=== PATIENT | female | born 1965 | race Caucasian/White ===

== ENCOUNTER 2016-04-07 17:38 | Emergency (ER) | payer OTHER ==
[~2016-04-07] VITALS: Ht 157.5 cm; Wt 102.1 kg
[~2016-04-07 17:38] MED LIST: ALBUTEROL0.09 MG/A3 IH; ATIVAN1 MG PO; AUGMENTIN 875 M1 TAB PO; CLINDAMYCIN150 M1 PO; EXCEDRIN 250 MG1 TAB PO; EXCEDRIN EXTRA1 TAB PO; HYDROCOD BIT &1 TAB PO; IMITREX25 MG PO; LISINOPRIL HCTZ1 TA1 PO; MOTRIN200 MG PO; NAPROSYN PO; NORVASC10 MG PO; PERCOCET 5/3251 TAB PO; ROXICODONE5 M1 PO; SOMA350 M1 PO; SOMA350 MG PO; VASOTEC10 MG PO; ZANAFLEX CAPSULE4 MG PO; ZOCOR20 MG PO; ZYRTEC10 MG PO; [UNRECOGNIZED DRUG - REMARK]; [UNRECOGNIZED DRUG - REMARK]
[2016-04-07 17:46] VITALS: BP 153/97
--- NOTE | 2016-04-07 17:51 | NUR ---
PATIENT TO BED 4.
--- NOTE | 2016-04-07 18:00 | NUR ---
Patient being evaluated by physician at bedside.
--- NOTE | 2016-04-07 18:04 | NUR ---
51/F presents to ED for evaluation of left arm pain. Denies trauma or injury. Patient is AOX4, ambulates with steady gait. VSS.
[2016-04-07] MEDS ORDERED: LIDOCAINE 1% 500 MG/50 ML VIAL INJ ONE (18:10)
--- NOTE | 2016-04-07 18:39 | NUR ---
LIDOCAINE GIVEN BY MD DURING PROCEDURE.
--- NOTE | 2016-04-07 19:11 | NUR ---
Chart checked and completed. The patient's care was reviewed and supervised by Ameya Arzate RN.
--- NOTE | 2016-04-07 19:11 | NUR ---
Patient discharged with v/s stable. Written and verbal after care instructions given and explained. Patient verbalized understanding. Ambulatory with steady gait. All questions addressed prior to discharge. Advised to follow up with PMD.
[2016-04-07 19:14] VITALS: BP 153/97
== END 2016-04-07 19:15 | disposition home or self-care (01) ==
LOC: MED 17:38
DX: M25.512 Pain in left shoulder (principal); M62.830 Muscle spasm of back; J44.9 Chronic obstructive pulmonary disease, unspecified; I10 Essential (primary) hypertension
CPT/HCPCS: 20552; 99284; J2001

== ENCOUNTER 2016-06-15 10:46 | Emergency (ER) | payer OTHER ==
[~2016-06-15] VITALS: Ht 158.8 cm; Wt 102.5 kg
[2016-06-15 11:16] VITALS: BP 136/91
--- NOTE | 2016-06-15 17:30 | NUR ---
PATIENT LEFT WITHOUT BEING SEEN BY DR. JOHNSTON. NO FURTHER CARE PROVIDED FOR PATIENT.
== END 2016-06-15 17:30 | disposition left against medical advice (07) ==
LOC: MED 10:46
DX: M54.2 Cervicalgia (principal); Z53.21 Procedure and treatment not carried out due to patient leaving prior to being seen by health care provider

== ENCOUNTER 2016-12-09 14:23 | Inpatient (IN) | payer OTHER ==
[~2016-12-09] VITALS: Ht 160 cm; Wt 101.6 kg
[~2016-12-09 14:23] MED LIST changes: -ALBUTEROL0.09 MG/A3 IH; -ATIVAN1 MG PO; -AUGMENTIN 875 M1 TAB PO; +CARI350T PO; -CLINDAMYCIN150 M1 PO; -EXCEDRIN 250 MG1 TAB PO; -EXCEDRIN EXTRA1 TAB PO; -HYDROCOD BIT &1 TAB PO; -IMITREX25 MG PO; -LISINOPRIL HCTZ1 TA1 PO; -MOTRIN200 MG PO; -NAPROSYN PO; -NORVASC10 MG PO; -PERCOCET 5/3251 TAB PO; -ROXICODONE5 M1 PO; -SOMA350 M1 PO; -SOMA350 MG PO; -VASOTEC10 MG PO; -ZANAFLEX CAPSULE4 MG PO; -ZOCOR20 MG PO; -ZYRTEC10 MG PO; -[UNRECOGNIZED DRUG - REMARK]; -[UNRECOGNIZED DRUG - REMARK]
[2016-12-09 14:32] VITALS: BP 157/106
[2016-12-09] MEDS ORDERED: HYDR12.51 PO (14:36)
--- NOTE | 2016-12-09 14:37 | NUR ---
Patient ambulated to bed 06.
--- NOTE | 2016-12-09 14:39 | NUR ---
Dr. Sheets evaluating patient at bedside.
--- NOTE | 2016-12-09 14:40 | NUR ---
PT C/O LEFT CHEST PAIN RADIATING DOWN LEFT ARM AND LEFT SIDED FACIAL PAIN 7/10.DENIES N/V/D; SKIN IS PINK/WARM/DRY; AAOX4 WITH EVEN AND STEADY GAIT; LUNGS CLEAR BL; HR EVEN AND REGULAR; PT DENIES ANY FEVER, SOB, OR COUGH AT THIS TIME; PATIENT STATES PAIN OF 7/10 AT THIS TIME; VSS; PATIENT POSITIONED FOR COMFORT; HOB ELEVATED; BEDRAILS UP X2; BED DOWN. ER MD MADE AWARE OF PT STATUS.
--- NOTE | 2016-12-09 14:49 | NUR ---
XRAY at bedside.
[2016-12-09] MEDS ORDERED: ASPIRIN 325 MG TAB ONE (14:50)
[2016-12-09 14:52] LABS: BASOPHILS # (AUTO) 0.3 K/uL (0.00-0.22); EOSINOPHILS # (AUTO) 0.3 K/uL (0-0.4); HEMATOCRIT 42.4 % (36-48); HEMOGLOBIN 13.8 g/dL (12.0-16.0); LYMPHOCYTES # (AUTO) 2.4 K/uL (2.5-16.5); MEAN CORPUSCULAR HEMOGLOBIN 29 pg (27-31); MEAN CORPUSCULAR HGB CONC 33 g/dL (33-37); MEAN CORPUSCULAR VOLUME 88 fL (80-94); MONOCYTES # (AUTO) 0.5 K/uL (0.8-1.0); NEUTROPHILS # (AUTO) 5.1 K/uL (1.8-7.7); PLATELET COUNT (AUTO) 336 K/uL (140-450); RED BLOOD CELL COUNT(AUTO) 4.84 MIL/uL (4.20-5.40); RED CELL DISTRIBUTION WIDTH 13.3 % (11.6-13.7); WHITE BLOOD COUNT (AUTO) 8.6 K/uL (4.8-10.8)
[2016-12-09 15:05] LABS: ANION GAP 10.8 (8-16); CARBON DIOXIDE 28.6 mmol/L (21-32); POTASSIUM 4.4 mmol/L (3.5-5.1)
[2016-12-09] MEDS ORDERED: METOPROLOL 5 MG/5 ML VIAL IVP ONE (15:05)
[2016-12-09 15:11] LABS: PROTHROMBIN TIME 9.9 secs (10.8-13.4)
[2016-12-09] MEDS: NACL 0.9% 1,000 ML IV SCH (15:11)
[2016-12-09 15:12] LABS: ALBUMIN 3.5 g/dL (3.4-5.0); TOTAL BILIRUBIN 0.3 mg/dL (0.0-1.0)
[2016-12-09] MEDS ORDERED: ONDANSETRON 4 MG/2 ML VIAL IVP PRN ×2 (15:15→15:25)
[2016-12-09] MEDS ORDERED: ACETAMINOPHEN 325 MG TAB PO PRN (15:15)
[2016-12-09] MEDS ORDERED: HYDROcodone/APAP 7.5/325 MG 1 TAB PO PRN (15:15)
[2016-12-09] MEDS ORDERED: NITROGLYCERIN 0.4 MG TAB SL PRN (15:20)
[2016-12-09] MEDS: MORPHINE SULFATE 4 MG/ML SYR IVP PRN ×2 (15:42→22:59)
--- NOTE | 2016-12-09 15:46 | NUR ---
Patient will be admitted to care of DR ZAZUETA. Admited to TELE. Will go to room 105B. Belongings list completed. Report to TWYLA YOUSIF.
[2016-12-09 15:55] VITALS: BP 143/80
[2016-12-09 15:55] LABS: APPEARANCE,URINE CLEAR (CLEAR); BILIRUBIN,URINE NEGATIVE (NEGATIVE); BLOOD, URINE NEGATIVE (NEGATIVE); COLOR,URINE YELLOW (YELLOW); LEUKOCYTE ESTERASE ,URINE NEGATIVE (NEGATIVE); NITRITE, URINE NEGATIVE (NEGATIVE); PH,URINE 5.5 (5.0-9.0); UGLUCOSE NEGATIVE (NEGATIVE)
--- NOTE | 2016-12-09 15:55 | NUR ---
RECEIVED PT REPORT AT BEDSIDE FROM ER NURSE. PT IS AAOX4 AND STATES SHE HAS A HEADACHE OF 7/10. PT STATED ONLY MORPHINE HELPS AND REFUSED NORCO AND TYLENOL. PT STATED "I'LL WAIT FOR THE MORPHINE." PT IV NOTED ON THE R AC WITH IVF'S INFUSING WELL. SKIN INTACT. ON TELE MONITOR. PT WAS EXPLAINED POC FOR TODAY AND SHE VERBALIZED UNDERSTANDING. THE BED IS IN LOW POSITION WITH CALL LIGHT WITHIN REACH. FALL RISK PROTOCOL SET IN PLACE BY WILL CONTINUE TO MONITOR.
[2016-12-09] MEDS ORDERED: MECLIZINE 25 MG TAB PO PRN (16:00)
[2016-12-09 16:03] LABS: BARBITURATE, URINE NEG. ng/ml (NEG <=200); BENZODIAZEPINE, URINE NEG. ng/mL (NEG <=200); CANNABINOID, URINE NEG. ng/mL (NEG <=50); COCAINE, URINE NEG. ng/mL (NEG <=300); OPIATE, URINE NEG. ng/mL (NEG <=2000); PHENCYCLIDINE SCREEN,URINE NEG. ng/mL (NEG <=25)
[2016-12-09 16:12] LABS: CHOL/HDL RATIO 4.3 (1-4.5); FREE T4 (FREE THYROXINE) 0.88 ng/dL (0.76-1.46); MAGNESIUM 1.8 mg/dL (1.8-2.4); PHOSPHORUS 3.5 mg/dL (2.5-4.9); THYROID STIMULATING HORMONE 2.94 uIU/mL (0.34-3.74)
[2016-12-09] MEDS ORDERED: MORPHINE SULFATE 2 MG/ML SYR IVP PRN (16:40)
--- NOTE | 2016-12-09 17:00 | NUR ---
GAVE PT REPORT TO NOAH WAKEFIELD. PT ENDORSED IN STABLE CONDITION.
--- NOTE | 2016-12-09 17:01 | NUR ---
RECEIVED BEDSIDE REPORT FROM NICA WAKEFIELD. PT AWAKE AND ALERT, NO SIGNS OF ACUTE DISTRESS. BOWEL SOUNDS ACTIVE IN ALL 4 QUADRANTS. SKIN INTACT. AMBULATORY WITH BRP. PT DENIES PAIN AT THIS TIME. RE-ORIENTED TO HOSPITAL AND TO UNIT, PT VERBALIZED UNDERSTANDING. IV PATENT AND ASYMPTOMATIC. BED IN LOW POSITION WITH BILATERAL HALF SIDE RAILS UP, CALL LIGHT WITHIN REACH. WILL CONTINUE TO MONITOR.
--- NOTE | 2016-12-09 17:31 | NUR ---
BIPAP MACHINE PLACED AT BEDSIDE FOR CPAP AT NIGHT ORDER. WILL ENDORSE TO SMELLER RT
--- NOTE | 2016-12-09 19:23 | NUR ---
PT AWAKE AND ALERT, NO SIGNS OF ACUTE DISTRESS. ENDORSED TO DIRECTOR OF RECREATION THERAPY NURSE FOR CONTINUITY OF CARE.
[2016-12-09 19:45] VITALS: BP 131/76
--- NOTE | 2016-12-09 19:45 | NUR ---
RECEIVED PT IN STABLE CONDITION FROM AM NURSE. AWAKE,ALERT AND ORIENTED X4. ON TELE MONITOR. JUST GET BACK FROM CT DEPT . CT HEAD DONE. NO C/O ANY DISCOMFORT NOR PAIN NOTED AT THIS TIME. IVF INFUSING ON THE RT AC#20. CLEAR AND PATENT. PLAN FO CARE DISCUSSED AND VERBALIZED UNDERSTANDING. CALL LIGHT PLACED WITHIN REACH, BED ON LOW POSITION. WILL CONTINUE TO MONITOR.
--- NOTE | 2016-12-09 20:00 | NUR ---
NO SCD MACHINE . PT IS AMBULATORY TO THE BATHROOM.
[2016-12-09] MEDS: DOCUSATE SODIUM 100 MG GELCAP PO SCH (20:37)
[2016-12-09] MEDS: ATORVASTATIN 20 MG TAB PO SCH (20:38)
[2016-12-09] MEDS: METOPROLOL 25 MG TAB PO SCH (20:39)
--- NOTE | 2016-12-09 21:16 | NUR ---
2110 PLACED PT ON CPAP OF 7 PRESSURE WITH MED SIZED MASK. 21% FIO2. NO SOB NOTED
--- NOTE | 2016-12-09 21:42 | NUR ---
CHECKED ON PT, ASLEEP WITH NO S/S OF ANY DISCOMFORT NOR PAIN NOTED. ON CPAP MACHINE .
--- NOTE | 2016-12-09 22:52 | NUR ---
PT AWAKE AND SAID HEADACHE IS WORST AT THIS TIME /10. WILL MEDICATE ORDERED.
[2016-12-09 22:56] VITALS: BP 125/76
--- NOTE | 2016-12-09 23:01 | NUR ---
2250 PT TOOK OFF CPAP MASK. PT STATES SHE HAS A HEADACHE. CHANGED MASK TO NASAL MASK. WILL PUT BACK ON PATIENT WHEN SHE IS READY
[2016-12-09 23:30] VITALS: BP 135/84
--- NOTE | 2016-12-09 23:53 | NUR ---
PT STILL REFUSED TO HAVE THE CPAP TO PUT BACK ON AT THIS TIME.
[2016-12-10] VITALS (7 sets, daily range): BP systolic 109–208; BP diastolic 65–98
--- NOTE | 2016-12-10 01:30 | NUR ---
MADE ROUNDS. PT ASLEEP. ON CPAP MACHINE. NO S/S OF ANY DISCOMFORT NOTED.
--- NOTE | 2016-12-10 03:00 | NUR ---
EKG DONE AT BEDSIDE-NSR.
--- NOTE | 2016-12-10 05:00 | NUR ---
ASLEEP. WITH NO ACUTE DISTRESS NOR PAIN NOTED. STILL WITH CPAP ON.
--- NOTE | 2016-12-10 06:30 | NUR ---
AWAKE AT THIS TIME. STILL WITH IVF INFUSING WELL ON THE RT AC#20. OFF ON THE CPAP.
--- NOTE | 2016-12-10 06:39 | NUR ---
CALLED RADIOLOGY ,FOLLOW UP US CAROTID ARTERY. TO BE DONE THIS AM.
[2016-12-10 06:41] LABS: BASOPHILS # (AUTO) 0.3 K/uL (0.00-0.22); EOSINOPHILS # (AUTO) 0.1 K/uL (0-0.4); EOSINOPHILS % (AUTO) 1.4 % (0.0-4.0); HEMATOCRIT 38.7 % (36-48); HEMOGLOBIN 12.9 g/dL (12.0-16.0); LYMPHOCYTES # (AUTO) 1.7 K/uL (2.5-16.5); LYMPHOCYTES % (AUTO) 18.8 % (20.5-51.1); MEAN CORPUSCULAR HEMOGLOBIN 29 pg (27-31); MEAN CORPUSCULAR HGB CONC 33 g/dL (33-37); MEAN CORPUSCULAR VOLUME 88 fL (80-94); MONOCYTES # (AUTO) 0.5 K/uL (0.8-1.0); MONOCYTES % (AUTO) 5.5 % (1.7-9.3); NEUTROPHILS # (AUTO) 6.5 K/uL (1.8-7.7); NEUTROPHILS % (AUTO) 71.3 % (42.2-75.2); PLATELET COUNT (AUTO) 307 K/uL (140-450); RED BLOOD CELL COUNT(AUTO) 4.41 MIL/uL (4.20-5.40); RED CELL DISTRIBUTION WIDTH 13.5 % (11.6-13.7); WHITE BLOOD COUNT (AUTO) 9.1 K/uL (4.8-10.8)
[2016-12-10 06:58] LABS: ANION GAP 10.3 (8-16); CARBON DIOXIDE 27.4 mmol/L (21-32); CREATININE 0.8 mg/dL (0.6-1.3); POTASSIUM 4.7 mmol/L (3.5-5.1)
--- NOTE | 2016-12-10 07:20 | NUR ---
ENDORSED PT IN STABLE CONDITION TO AM NURSE FOR CONTINUITY OF CARE.
--- NOTE | 2016-12-10 07:21 | NUR ---
RECEIVED BEDSIDE REPORT FROM [employer] RN. PT AWAKE AND ALERT, NO SIGNS OF ACUTE DISTRESS. BOWEL SOUNDS ACTIVE IN ALL 4 QUADRANTS. SKIN INTACT. IV PATENT AND ASYMPTOMATIC. AMBULATORY WITH BRP. PT ON ROOM AIR. PT DENIES PAIN. RE-ORIENTED TO HOSPITAL AND TO UNIT, PT VERBALIZED UNDERSTANDING. BED IN LOW POSITION WITH BILATERAL HALF SIDE RAILS UP, CALL LIGHT WITHIN REACH. WILL CONTINUE TO MONITOR.
[2016-12-10 07:29] LABS: MAGNESIUM 1.9 mg/dL (1.8-2.4); PHOSPHORUS 3.5 mg/dL (2.5-4.9)
[2016-12-10] MEDS: HYDROCHLOROTHIAZIDE 25 MG TAB PO SCH (08:10)
[2016-12-10] MEDS: DOCUSATE SODIUM 100 MG GELCAP PO SCH ×2 (08:10→20:54)
[2016-12-10] MEDS: ASPIRIN 81 MG TAB.CHEW PO SCH (08:10)
[2016-12-10] MEDS: LISINOPRIL 5 MG TAB PO SCH (08:11)
[2016-12-10] MEDS: METOPROLOL 25 MG TAB PO SCH ×2 (08:11→20:55)
[2016-12-10] MEDS: PANTOPRAZOLE 40 MG TABEC PO SCH (08:11)
[2016-12-10] MEDS ORDERED: ASPIRIN 325 MG TABEC PO SCH (09:00)
--- NOTE | 2016-12-10 09:15 | NUR ---
PT RESTING COMFORTABLY IN BED, NO SIGNS OF ACUTE DISTRESS. BED IN LOW POSITION WITH BILATERAL HALF SIDE RAILS UP, CALL LIGHT WITHIN REACH. WILL CONTINUE TO MONITOR.
[2016-12-10] MEDS: APAP/BUTAL/CAFF 325/50/40 MG 1 TAB PO PRN ×2 (10:52→21:04)
--- NOTE | 2016-12-10 10:52 | NUR ---
PT COMPLAINING OF HEADACHE 5/10. ADMINISTERED FIORICET, WILL CONTINUE TO MONITOR.
[2016-12-10] MEDS: NACL 0.9% 1,000 ML IV SCH (11:11)
--- NOTE | 2016-12-10 11:52 | NUR ---
PATIENT HEADACHE SUBSIDING, WILL CONTINUE TO MONITOR.
--- NOTE | 2016-12-10 12:30 | NUR ---
PT UPRIGHT EATING LUNCH, STATES HEADACHE IS GONE. BED IN LOW POSITION WITH BILATERAL HALF SIDE RAILS UP, CALL LIGHT WITHIN REACH. WILL CONTINUE TO MONITOR.
--- NOTE | 2016-12-10 14:40 | NUR ---
CM NOTE INITIAL REVIEW FAXED TO [facility] / FAX# [phone], ATTN: NOAH #[phone] [id number]
--- NOTE | 2016-12-10 18:30 | NUR ---
PT UPRIGHT EATING DINNER IN BED, NO SIGNS OF ACUTE DISTRESS. PT DENIES HEADACHE OR PAIN AT THIS TIME. BED IN LOW POSITION WITH BILATERAL HALF SIDE RAILS UP, CALL LIGHT WITHIN REACH. WILL CONTINUE TO MONITOR.
--- NOTE | 2016-12-10 19:28 | NUR ---
PT AWAKE AND ALERT, NO SIGNS OF ACUTE DISTRESS. ENDORSED TO RECONCILIATION ACCOUNTANT NURSE FOR CONTINUITY OF CARE.
--- NOTE | 2016-12-10 19:35 | NUR ---
RECEIVED PT IN STABLE CONDITION FROM AM NURSE. AWAKE,ALERT AND ORIENTED X4. ON TELE MONITOR-SR. WITH NO C/O ANY DISCOMFORT NOR PAIN NOTED AT THIS TIME. AMBULATORY . IVF INFUSING ON THE RT AC #20. CLEAR AND PATENT. PLAN FO CARE DISCUSSED AND VERBALIZED UNDERSTANDING. BED ON LOW POSITION, ENCOURAGED TO CALL IF NEED ASSISTANCE. CALL LIGHT PLACED WITHIN EASY REACH. WILL CONTINUE TO MONITOR.
--- NOTE | 2016-12-10 20:02 | NUR ---
PATIENT REQUESTED TO GO ON CPAP +6 AT THIS TIME
[2016-12-10] MEDS: ATORVASTATIN 20 MG TAB PO SCH (20:54)
[2016-12-11 00:05] VITALS: BP 126/77
--- NOTE | 2016-12-11 03:00 | NUR ---
SLEEPING AT THIS TIME. NO S/S OF ANY DISCOMFORT NOR PAIN NOTED. WILL CONTINUE TO MONITOR.
[2016-12-11 04:29] VITALS: BP 107/76
--- NOTE | 2016-12-11 05:00 | NUR ---
PATIENT OFF CPAP, ON ROOM AIR
--- NOTE | 2016-12-11 06:10 | NUR ---
PT CALLED AND SAID PAIN STILL A LOT. AND THE MORPHINE SEEMS DIDN'T HELP AT ALL. SO TALKED TO INTERNS,DR. NUNEZ AND DR. SUAREZ. MADE THEN BOTH AWARE. OK TO GIVE THE FIORICET AT THIS TIME.
[2016-12-11] MEDS: APAP/BUTAL/CAFF 325/50/40 MG 1 TAB PO PRN (06:14)
--- NOTE | 2016-12-11 07:14 | NUR ---
CHECKED ON PT. SHE SAID PAIN IS BETTER. WANTS TO TAKE SHOWER. COMMERCIAL ARTIST MADE AWARE . TALKED TO PT ALSO AND I TOLD HER TO TAKE SHOWER WHEN PAIN IS GONE.
--- NOTE | 2016-12-11 07:25 | NUR ---
ENDORSED PT IN STABLE CONDITION TO AM NURSE FOR CONTINUITY OF CARE.
--- NOTE | 2016-12-11 07:30 | NUR ---
ASSUMED CONTINUITY OF CARE FROM NIGHT RN. PATIENT IN STABLE CONDITION. PATIENT IS AWAKE, ALERT, ORIENTED TO PERSON, PLACE, DATE AND TIME. SKIN WARM TO TOUCH WNL, TOENAILAS WNL, NO EDEMA, WITH HAIR GROWTH AND +2 BILATERAL PEDAL PULSES. RIGHT AC PERIPHERAL IV G20, PATENT AND INTACT. APPEARS TO BE COMFORTABLE IN BED. CALL LIGHT WITHIN REACH. WILL MONITOR PATIENT.
--- NOTE | 2016-12-11 07:50 | NUR ---
DR. JUAREZ AND GROUP ROUNDING ON PATIENT. WILL FOLLOW UP WITH ORDERS.
[2016-12-11 08:04] VITALS: BP 123/74
[2016-12-11] MEDS ORDERED: SUMAtriptan 50 MG TAB PO SCH (08:15)
[2016-12-11] MEDS ORDERED: IMI50 PO (08:59)
[2016-12-11] MEDS ORDERED: LISI-424 PO (08:59)
--- NOTE | 2016-12-11 09:25 | NUR ---
PATIENT IS IN THE SHOWER ROOM TAKING SHOWER.
--- NOTE | 2016-12-11 09:35 | NUR ---
RESIDENT PHYSICIAN, DR. SUAREZ AT BEDSIDE TALKING TO PATIENT REGARDING D/C AND FOLLOW UP APPOINTMENTS AND INSTRUCTIONS. WILL FOLLOW UP WITH D/C ORDERS.
[2016-12-11] MEDS: ASPIRIN 81 MG TAB.CHEW PO SCH (10:03)
[2016-12-11] MEDS: PANTOPRAZOLE 40 MG TABEC PO SCH (10:03)
[2016-12-11] MEDS: DOCUSATE SODIUM 100 MG GELCAP PO SCH (10:03)
[2016-12-11] MEDS: LISINOPRIL 5 MG TAB PO SCH (10:05)
[2016-12-11] MEDS: METOPROLOL 25 MG TAB PO SCH (10:05)
[2016-12-11] MEDS: HYDROCHLOROTHIAZIDE 25 MG TAB PO SCH (10:07)
[2016-12-11 10:17] VITALS: BP 109/74
--- NOTE | 2016-12-11 11:36 | NUR ---
CM NOTE CONCURRENT REVIEW FAXED TO [facility] / FAX# [phone], ATTN: NOAH #[phone] [id number]
[2016-12-11 12:00] VITALS: BP 109/74
--- NOTE | 2016-12-11 12:15 | NUR ---
OFFERED PATIENT FLU VACCINE, PATIENT REFUSED. RISKS AND BENEFITS EXPLAINED.
--- NOTE | 2016-12-11 13:45 | NUR ---
D/C INSTRUCTIONS AND FOLLOW UP APPOINTMENTS WITH PRIMARY PHYSICIAN AND RIBBON HANKING MACHINE OPERATOR. PATIENT ABLE TO VERBALIZE UNDERSTANDING. PERIPHERAL IV D/C, CATHETER INTACT. ID BAND REMOVED. D/C VIA WHEELCHAIR. PATIENT IN STABLE CONDITION.
== END 2016-12-11 13:45 | disposition home or self-care (01) ==
LOC: MED 14:23 → MTU 14:37
PROVIDERS: ADMIT Student in an Organized Health Care Education/Training Program; ATTEND Student in an Organized Health Care Education/Training Program
DX: K80.20 Calculus of gallbladder without cholecystitis without obstruction (principal); G90.9 Disorder of the autonomic nervous system, unspecified; I10 Essential (primary) hypertension; E78.5 Hyperlipidemia, unspecified; I16.0 Hypertensive urgency; J44.9 Chronic obstructive pulmonary disease, unspecified; G47.33 Obstructive sleep apnea (adult) (pediatric); G43.909 Migraine, unspecified, not intractable, without status migrainosus; E66.9 Obesity, unspecified; Z68.39 Body mass index [BMI] 39.0-39.9, adult; Z82.49 Family history of ischemic heart disease and other diseases of the circulatory system; Z82.3 Family history of stroke; Z79.899 Other long term (current) drug therapy; Z28.21 Immunization not carried out because of patient refusal; Z98.891 History of uterine scar from previous surgery; Z83.3 Family history of diabetes mellitus; Z82.5 Family history of asthma and other chronic lower respiratory diseases
CPT/HCPCS: 36415; 70450; 71010; 80048; 80053; 80305; 81003; 83036; 83735; 83880; 84100; 84439; 84443; 84484; 85025; 85610; 85730; 87081; 87086; 93005; 93880; 94660; 96374; 96375; 99285; J2270; J2405; J3490; J7030; Q0092

== ENCOUNTER 2017-08-10 14:14 | Emergency (ER) | payer OTHER ==
[~2017-08-10] VITALS: Ht 160 cm; Wt 102.1 kg
[~2017-08-10 14:14] MED LIST changes: -CARI350T PO; +HYDR12.51 PO; +IMI50 PO; +LISI-424 PO
[2017-08-10 14:28] VITALS: BP 136/85
--- NOTE | 2017-08-10 14:33 | NUR ---
PT AMBULATES TO BED 2
--- NOTE | 2017-08-10 15:02 | NUR ---
52YO F TO ER WITH C/O COUGH/CONGESTION X 3 WEEKS, WAS SEEN HERE LAST WEEK, GIVEN STEROIDS RX, BUT NOT GETTING BETTER. DENIES CP OR SOB, WITH COUGHING. PT STATES DIFFICULTY SLEEPING DUE TO INCREASED COUGHING AT NIGHT, SINUS CONCGUSTION, PAIN WITH SWALLOWING AND DIARRHEA. PT DENIES ABD PAIN, CP, SOB. LS CLEAR, BS ACTIVE X4 . WILL CONTINUE TO MONITOR. ER MD MADE AWARE. MED HX: BACK PROBLEMS, HTN, MIGRAINES MEDS: TRIMIDEZ, HTN MEDS(UNKNOWN)
--- NOTE | 2017-08-10 15:05 | NUR ---
Patient being evaluated by physician at bedside.
[2017-08-10] MEDS ORDERED: METOCLOPRAMIDE 10 MG/2 ML INJ VIAL IM ONE (15:10)
[2017-08-10] MEDS ORDERED: KETOROLAC 60 MG/2 ML VIAL IM ONE (15:10)
[2017-08-10 16:00] VITALS: BP 132/86
--- NOTE | 2017-08-10 16:00 | NUR ---
Patient discharged with v/s stable. Written and verbal after care instructions given and explained. Patient alert, oriented and verbalized understanding of instructions. Ambulatory with steady gait. All questions addressed prior to discharge. ID band removed. Patient advised to follow up with PMD. Rx of TESSALON PEARLS, ALBUTEROL, CLARITIN-D given. Patient educated on indication of medication including possible reaction and side effects. Opportunity to ask questions provided and answered.
== END 2017-08-10 16:00 | disposition home or self-care (01) ==
LOC: MED 14:14
DX: G43.909 Migraine, unspecified, not intractable, without status migrainosus (principal); J40 Bronchitis, not specified as acute or chronic; J44.9 Chronic obstructive pulmonary disease, unspecified; I10 Essential (primary) hypertension; Z79.899 Other long term (current) drug therapy
CPT/HCPCS: 96372; 99284; J1885; J2765

== ENCOUNTER 2017-10-19 11:46 | Emergency (ER) | payer OTHER ==
[~2017-10-19] VITALS: Ht 160 cm; Wt 105.2 kg
[2017-10-19 11:54] VITALS: BP 155/83
--- NOTE | 2017-10-19 12:00 | NUR ---
PT AMBULATES TO BED 3
--- NOTE | 2017-10-19 12:05 | NUR ---
52F BIB SELF WITH C/O 5/10 CONSTANT LOWER BACK PAIN RADIATING LLE X 2 DAYS; PT DENIES RECENT INJURIES OR FALLS; PT IS AMBULATED WITH STEADY GAIT. PT DENIES ANY URINARY OR BOWEL INCONTINENCE; PULSE +2 AND CAP REFILL < 3 SECONDS TO BL LOWER EXTREMITIES; PT CHANGED INTO GOWN; AWAITING ER MD CALI; PT POSITIONED TO COMFORT; ALL NEEDS MET AT THIS TIME.
--- NOTE | 2017-10-19 12:26 | NUR ---
DR WORLEY EVALUATING AT BEDSIDE
[2017-10-19] MEDS ORDERED: KETOROLAC 60 MG/2 ML VIAL IM ONE (12:30)
--- NOTE | 2017-10-19 12:44 | NUR ---
pt to xray via w/c accompanied by radiology nurse
--- NOTE | 2017-10-19 12:50 | NUR ---
pt returned from xray accompanied by senior technologist; returned to rm 3 without incident
[2017-10-19] MEDS ORDERED: fentaNYL 0.05 MG/ML VIAL IM ONE (13:50)
[2017-10-19 14:59] VITALS: BP 155/83
--- NOTE | 2017-10-19 15:01 | NUR ---
Patient discharged with v/s stable. Written and verbal after care instructions given and explained. Patient alert, oriented and verbalized understanding of instructions. Ambulatory with steady gait. All questions addressed prior to discharge. ID band removed. Patient advised to follow up with PMD. Rx of medrol, tramadol, and motrin given. Patient educated on indication of medication including possible reaction and side effects. Opportunity to ask questions provided and answered.
== END 2017-10-19 14:55 | disposition home or self-care (01) ==
LOC: MED 11:46
DX: M54.42 Lumbago with sciatica, left side (principal); M54.41 Lumbago with sciatica, right side; J44.9 Chronic obstructive pulmonary disease, unspecified; I10 Essential (primary) hypertension; Z79.899 Other long term (current) drug therapy
CPT/HCPCS: 72100; 81002; 81025; 96372; 99284; J1885; J3010

== ENCOUNTER 2018-01-01 20:17 | Emergency (ER) | payer OTHER ==
[~2018-01-01] VITALS: Ht 160 cm; Wt 104.0 kg
[2018-01-01 20:44] VITALS: BP 139/58
--- NOTE | 2018-01-01 20:50 | NUR ---
PT RETURNED TO LOBBY IN STABLE CONDITION
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
--- NOTE | 2018-01-01 21:25 | NUR ---
PT AMBULATED TO ER BED 07
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
[2018-01-01] MEDS ORDERED: KETOROLAC 30 MG/ML VIAL IM ONE (22:35)
--- NOTE | 2018-01-01 23:00 | NUR ---
Patient discharged with v/s stable. Written and verbal after care instructions given and explained. Patient alert, oriented and verbalized understanding of instructions. Ambulatory with steady gait. All questions addressed prior to discharge. ID band removed. Patient advised to follow up with PMD. Rx of NAPROSYN, NORCO given. Patient educated on indication of medication including possible reaction and side effects. Opportunity to ask questions provided and answered.
[2018-01-01 23:03] VITALS: BP 131/80
== END 2018-01-01 23:00 | disposition home or self-care (01) ==
LOC: MED 20:17
DX: S00.33XA Contusion of nose, initial encounter (principal); J44.9 Chronic obstructive pulmonary disease, unspecified; I10 Essential (primary) hypertension; Z79.899 Other long term (current) drug therapy; Y04.2XXA Assault by strike against or bumped into by another person, initial encounter; Y93.89 Activity, other specified; Y92.89 Other specified places as the place of occurrence of the external cause; Y99.8 Other external cause status
CPT/HCPCS: 70486; 96372; 99284; J1885

== ENCOUNTER 2018-02-15 18:15 | Emergency (ER) | payer OTHER ==
[~2018-02-15] VITALS: Ht 160 cm; Wt 102.1 kg
--- NOTE | 2018-02-15 18:20 | NUR ---
Patient ambulated to bed 6. RN evaluating patient at bedside.
[2018-02-15 18:28] VITALS: BP 137/89
--- NOTE | 2018-02-15 18:42 | NUR ---
PATIENT PRESENTS TO ED WITH C/O INTERMITTENT LEFT FLANK SHARP PAIN RADIATING LEFT LOWER BACK DENIES INJURY OR DYSURIA AT THIS TIME----AMBULATORY WITH STEADY GAIT . DENIES N/V/D; SKIN IS PINK/WARM/DRY; AAOX4 WITH EVEN AND STEADY GAIT; LUNGS CLEAR BL; HR EVEN AND REGULAR; PT DENIES ANY FEVER, CP, SOB, OR COUGH AT THIS TIME; PATIENT STATES PAIN OF 9/10 AT THIS TIME; VSS; PATIENT POSITIONED FOR COMFORT; HOB ELEVATED; BEDRAILS UP X2; BED DOWN. ER MD MADE AWARE OF PT STATUS.
--- NOTE | 2018-02-15 19:10 | NUR ---
ASSUMED CARE OF PT AT THIS TIME. PT AWAITS MD CALI. CYNTHIA. VSS. WILL CONTINUE TO MONITOR.
[2018-02-15] MEDS ORDERED: MORPHINE SULFATE 4 MG/ML SYR IM ONE (19:40)
[2018-02-15 20:20] VITALS: BP 128/85
--- NOTE | 2018-02-15 20:20 | NUR ---
Patient discharged with v/s stable. Written and verbal after care instructions given and explained. Patient alert, oriented and verbalized understanding of instructions. Ambulatory with steady gait. All questions addressed prior to discharge. ID band removed. Patient advised to follow up with PMD. Rx of VALIUM 5MG given. Patient educated on indication of medication including possible reaction and side effects. Opportunity to ask questions provided and answered.
== END 2018-02-15 20:20 | disposition home or self-care (01) ==
LOC: MED 18:15
DX: R10.9 Unspecified abdominal pain (principal); J44.9 Chronic obstructive pulmonary disease, unspecified; I10 Essential (primary) hypertension; Z90.49 Acquired absence of other specified parts of digestive tract; Z79.899 Other long term (current) drug therapy
CPT/HCPCS: 81002; 81025; 96372; 99283; J2270

== ENCOUNTER 2018-11-21 13:47 | Emergency (ER) | payer OTHER ==
[~2018-11-21] VITALS: Ht 160 cm; Wt 103.6 kg
[2018-11-21 14:25] VITALS: BP 160/107
--- NOTE | 2018-11-21 14:45 | NUR ---
PT AMBULATES TO BED 12
--- NOTE | 2018-11-21 14:53 | NUR ---
PT C/O CHEST PAIN X3 DAYS. 10/10 PRESSURE IN CHEST THAT RADIATES TO LT ARM. DENIES NUMBNESS AND TINGLING. PT STATES SHE HAS EPISODES OF DIZZINESS X1 WEEK, NO SYNCOPE EPISODES. DENIES COUGH. RESPIRATIONS EVEN AND UNLABORED, NO N/V/D. PT SITTING IN BED, CALM AND PLEASANT. MEDHX: HTN, MIGRAINES ALLERGIES: DENIES
[2018-11-21] MEDS ORDERED: KETOROLAC 60 MG/2 ML VIAL IM ONE (15:20)
--- NOTE | 2018-11-21 15:30 | NUR ---
XRAY AT BEDSIDE
[2018-11-21 15:59] LABS: BASOPHILS # (AUTO) 0.1 K/uL (0.00-0.22); BASOPHILS % (AUTO) 1.2 % (0.0-2.0); EOSINOPHILS # (AUTO) 0.2 K/uL (0-0.4); EOSINOPHILS % (AUTO) 2.5 % (0.0-4.0); HEMATOCRIT 42.5 % (36-48); HEMOGLOBIN 14.2 g/dL (12.0-16.0); LYMPHOCYTES # (AUTO) 2.3 K/uL (2.5-16.5); LYMPHOCYTES % (AUTO) 24.9 % (20.5-51.1); MEAN CORPUSCULAR HEMOGLOBIN 29 pg (27-31); MEAN CORPUSCULAR HGB CONC 34 g/dL (33-37); MEAN CORPUSCULAR VOLUME 87.2 fL (80-94); MONOCYTES # (AUTO) 0.5 K/uL (0.8-1.0); MONOCYTES % (AUTO) 5.2 % (1.7-9.3); NEUTROPHILS # (AUTO) 6.1 K/uL (1.8-7.7); NEUTROPHILS % (AUTO) 66.2 % (42.2-75.2); PLATELET COUNT (AUTO) 314 K/uL (140-450); RED BLOOD CELL COUNT(AUTO) 4.88 MIL/uL (4.20-5.40); RED CELL DISTRIBUTION WIDTH 13.7 % (11.6-13.7); WHITE BLOOD COUNT (AUTO) 9.2 K/uL (4.8-10.8)
--- NOTE | 2018-11-21 16:21 | NUR ---
PT C/O NO PAIN RELIEF AFTER TORADOL SHOT. 12/15 PAIN, THROBBING IN CHEST RADIATING TO LT ARM. DR KHAN NOTIFIED. NO RESPIRATORY DISTRESS AT THIS TIME.
[2018-11-21] MEDS ORDERED: HYDROcodone/APAP 5/325 MG 1 TAB TAB PO ONE (16:25)
[2018-11-21 16:31] LABS: ANION GAP 10.7 (8-16); CARBON DIOXIDE 29.6 mmol/L (21-32); POTASSIUM 4.3 mmol/L (3.5-5.1)
[2018-11-21 16:32] LABS: CREATININE 0.8 mg/dL (0.6-1.3); TOTAL BILIRUBIN 0.4 mg/dL (0.0-1.0)
[2018-11-21 16:33] LABS: ALBUMIN 3.2 g/dL (3.4-5.0)
--- NOTE | 2018-11-21 17:01 | NUR ---
PT RESTING IN BED, STATES SOME RELIEF OF CHEST PAIN. COMFORTABLE, VSS.
[2018-11-21 17:26] VITALS: BP 131/86
--- NOTE | 2018-11-21 17:26 | NUR ---
Patient discharged with v/s stable. Written and verbal after care instructions given and explained. Patient alert, oriented and verbalized understanding of instructions. Ambulatory with to home. All questions addressed prior to discharge. ID band removed. Patient advised to follow up with PMD. Rx of NAPROSYN AND NORCO given. Patient educated on indication of medication including possible reaction and side effects. Opportunity to ask questions provided and answered. PTS DAUGHTER TO DRIVE PT HOME.
== END 2018-11-21 17:26 | disposition home or self-care (01) ==
LOC: MED 13:47
DX: I10 Essential (primary) hypertension (principal); R51 Headache; J44.9 Chronic obstructive pulmonary disease, unspecified; Z79.899 Other long term (current) drug therapy; Z98.890 Other specified postprocedural states
CPT/HCPCS: 36415; 71045; 80053; 84484; 85025; 93005; 96372; 99284; J1885; Q0092

== ENCOUNTER 2019-01-02 17:56 | Emergency (ER) | payer OTHER ==
[~2019-01-02] VITALS: Ht 157.5 cm; Wt 104.4 kg
[2019-01-02 18:12] VITALS: BP 170/92
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
[2019-01-02] MEDS ORDERED: MORPHINE SULFATE 4 MG/ML SYR IM ONE (19:15)
--- NOTE | 2019-01-02 19:30 | NUR ---
MEDICATION ADMINISTERED UNDER WRONG RN. MORPHINE 4MG IM ADMINISTERED BY TWYLA HARLEY.
--- NOTE | 2019-01-02 19:32 | NUR ---
PT RECEIVED MORPHINE 4MG IM FOR 10/10 NECK PAIN. WILL REASSESS.
--- NOTE | 2019-01-02 20:05 | NUR ---
PT REPORTS IMPROVED PAIN; 3/10.
[2019-01-02 21:01] VITALS: BP 163/87
--- NOTE | 2019-01-02 21:01 | NUR ---
Patient discharged with v/s stable. Written and verbal after care instructions given and explained. Patient alert, oriented and verbalized understanding of instructions. Ambulatory with steady gait. All questions addressed prior to discharge. ID band removed. Patient advised to follow up with PMD. Rx of Tramadol given. Patient educated on indication of medication including possible reaction and side effects. Opportunity to ask questions provided and answered. Pt discharged by Dr. Flores.
== END 2019-01-02 21:01 | disposition home or self-care (01) ==
LOC: MED 17:56
DX: S13.9XXA Sprain of joints and ligaments of unspecified parts of neck, initial encounter (principal); J44.9 Chronic obstructive pulmonary disease, unspecified; I10 Essential (primary) hypertension; Z98.890 Other specified postprocedural states; Z79.899 Other long term (current) drug therapy; X58.XXXA Exposure to other specified factors, initial encounter; Y93.89 Activity, other specified; Y92.89 Other specified places as the place of occurrence of the external cause; Y99.8 Other external cause status
CPT/HCPCS: 96372; 99283; J2270

== ENCOUNTER 2019-09-06 18:35 | Emergency (ER) | payer OTHER ==
[~2019-09-06] VITALS: Ht 160 cm; Wt 104.3 kg
--- NOTE | 2019-09-06 18:40 | NUR ---
PT AMBULATED TO BED 11, STEADY GAIT.
[2019-09-06 18:44] VITALS: BP 149/89
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
--- NOTE | 2019-09-06 19:06 | NUR ---
TRANSFER OF CARE TO TWYLA TORREZ.
--- NOTE | 2019-09-06 19:28 | NUR ---
NABOR WORLEY AT BEDSIDE EVALUATING PT.
--- NOTE | 2019-09-06 19:53 | NUR ---
XRAY AT BEDSIDE.
[2019-09-06 20:34] VITALS: BP 149/89
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
--- NOTE | 2019-09-06 20:34 | NUR ---
Patient discharged with v/s stable. Written and verbal after care instructions given and explained. Patient verbalized understanding. ID Band Removed. Ambulatory with steady gait. All questions addressed prior to discharge. Advised to follow up with PMD.
== END 2019-09-06 20:34 | disposition home or self-care (01) ==
LOC: MED 18:35
DX: S60.465A Insect bite (nonvenomous) of left ring finger, initial encounter (principal); G56.00 Carpal tunnel syndrome, unspecified upper limb; I10 Essential (primary) hypertension; J44.9 Chronic obstructive pulmonary disease, unspecified; J45.909 Unspecified asthma, uncomplicated; W57.XXXA Bitten or stung by nonvenomous insect and other nonvenomous arthropods, initial encounter; Y93.89 Activity, other specified; Y92.89 Other specified places as the place of occurrence of the external cause; Y99.8 Other external cause status
CPT/HCPCS: 73130; 99283; Q0092

== ENCOUNTER 2019-10-11 16:59 | Emergency (ER) | payer OTHER ==
[~2019-10-11] VITALS: Ht 157.5 cm; Wt 102.1 kg
[2019-10-11 17:02] VITALS: BP 141/94
[2019-10-11] MEDS ORDERED: KETOROLAC 30 MG/ML VIAL IM ONE (17:45)
[2019-10-11] MEDS ORDERED: HYDROcodone/APAP 5/325 MG 1 TAB TAB PO ONE (17:45)
[2019-10-11 17:53] VITALS: BP 141/94
--- NOTE | 2019-10-11 17:53 | NUR ---
C/O LEFT SIDED BACK PAIN X2 DAYS, DENIES ANY INJURY OR DYSURIA/FREQUENCY. FLANK TENDERNESS PRESENT. CONSTANT 6/10 SHARP PAIN. DENIES ANY FEVER/CHILLS/ SOB/CP. RESP EVEN AND UNLABORED. AAOX4. AMBULATORY WITH STEADY GAIT.
--- NOTE | 2019-10-11 19:38 | NUR ---
Patient discharged with v/s stable. Written and verbal after care instructions given and explained. Patient alert, oriented and verbalized understanding of instructions. Ambulatory with steady gait. All questions addressed prior to discharge. ID band removed. Patient advised to follow up with PMD. Rx of naproxen,norco given. Patient educated on indication of medication including possible reaction and side effects. Opportunity to ask questions provided and answered.
== END 2019-10-11 19:38 | disposition home or self-care (01) ==
LOC: MED 16:59
DX: M54.5 Low back pain (principal); E11.9 Type 2 diabetes mellitus without complications; I10 Essential (primary) hypertension; J44.9 Chronic obstructive pulmonary disease, unspecified; Z79.899 Other long term (current) drug therapy
CPT/HCPCS: 72110; 81002; 96372; 99283; J1885

== ENCOUNTER 2020-11-01 18:36 | Emergency (ER) | payer OTHER ==
[~2020-11-01] VITALS: Ht 157.5 cm; Wt 98.0 kg
[~2020-11-01 18:36] MED LIST changes: -LISI-424 PO; +LISI-648 PO
[2020-11-01 18:43] VITALS: BP 130/86
--- NOTE | 2020-11-01 18:51 | NUR ---
PT AMBULATED TO BED 6
--- NOTE | 2020-11-01 19:10 | NUR ---
55 YO/F BIB SELF W C/O NECK PAIN 10/10 SHARP AND THROBBING X2 DAYS WORSENED AND CONSTANT X1 DAY W INTERMITTENT RADIATION OF PAIN TO HEAD UNILATERAL L OR R SIDE. PATIENT REPORTS SURGERY X1 YEAR AGO FOR THE NECK PAIN. PATIENT DENIES TRAUMA/INJURY, DENIES BLURRY VISION OF OTHER SYMPTOMS. PATIENT LAYING IN BED LOCKED IN LOWEST POSITION, HOB ELEVATED W PILLOW BEHIND PATIENTS NECK FOR COMFORT, X2 SIDE RAILS UP FOR PATIENT SAFETY. CONNECTED TO MONITOR W VSS. BREATHING EVEN AND UNLABORED. NAD NOTED, WILL CONTINUE TO MONITOR. PMH: HTN, CHRONIC NECK AND BACK PAIN NKA
[2020-11-01] MEDS: KETOROLAC 60 MG/2 ML VIAL IM ONE (19:49)
[2020-11-01] MEDS: MORPHINE SULFATE 4 MG/ML SYR IM ONE (19:50)
--- NOTE | 2020-11-01 20:35 | NUR ---
PATIENT REPORTS NECK PAIN HAS IMPROVED NOW AT 4/10.
[2020-11-01] MEDS ORDERED: NAPR-54 PO (21:04)
[2020-11-01 21:09] VITALS: BP 132/78
== END 2020-11-01 21:09 | disposition home or self-care (01) ==
LOC: MED 18:36
DX: S13.4XXA Sprain of ligaments of cervical spine, initial encounter (principal); J45.909 Unspecified asthma, uncomplicated; I10 Essential (primary) hypertension; X58.XXXA Exposure to other specified factors, initial encounter; Y93.89 Activity, other specified; Y92.89 Other specified places as the place of occurrence of the external cause; Y99.8 Other external cause status
CPT/HCPCS: 96372; 99284; J1885; J2270

== ENCOUNTER 2021-04-16 13:39 | Emergency (ER) | payer OTHER ==
[~2021-04-16] VITALS: Ht 157.5 cm; Wt 89.9 kg
[~2021-04-16 13:39] MED LIST changes: -LISI-648 PO; +LISI5TAB24 PO; +NAPR-54 PO
[2021-04-16 13:59] VITALS: BP 131/94
[2021-04-16] MEDS ORDERED: LOTC TP (14:45)
[2021-04-16] MEDS ORDERED: PRED20TA5 PO (14:45)
[2021-04-16] MEDS ORDERED: CLOB0.0525 TP (14:45)
--- NOTE | 2021-04-16 14:51 | NUR ---
Patient discharged with v/s stable. Written and verbal after care instructions ABOUT RASH given and explained. Patient alert, oriented and verbalized understanding of instructions. Ambulatory with steady gait. All questions addressed prior to discharge. ID band removed. Patient advised to follow up with PMD. Rx of CLOBETASOL PORPIONATE, CLOTRIMAZOLE, AND PREDNISONE given. Patient educated on indication of medication including possible reaction and side effects. Opportunity to ask questions provided and answered. PT SEEN AND TREATED BY JEROD RIOS, NO NURSING INTERVENTIONS PROVIDED
== END 2021-04-16 14:51 | disposition home or self-care (01) ==
LOC: MED 13:39
DX: R21 Rash and other nonspecific skin eruption (principal); J44.9 Chronic obstructive pulmonary disease, unspecified; I10 Essential (primary) hypertension; Z79.899 Other long term (current) drug therapy
CPT/HCPCS: 99283

== ENCOUNTER 2021-05-09 13:50 | Emergency (ER) | payer OTHER ==
[~2021-05-09] VITALS: Ht 157.5 cm; Wt 88.9 kg
[~2021-05-09 13:50] MED LIST changes: +CLOB0.0525 TP; +LOTC TP; +PRED20TA5 PO
[2021-05-09 14:04] VITALS: BP 108/80
[2021-05-09] MEDS ORDERED: KETOROLAC 30 MG/ML VIAL IM ONE (14:15)
--- NOTE | 2021-05-09 14:17 | NUR ---
JEROD Walters is evaluating pt at bedside
--- NOTE | 2021-05-09 14:24 | NUR ---
RAD at bedside
--- NOTE | 2021-05-09 14:30 | NUR ---
56yo f c/o worsening right hand and wrist pain x 2 weeks. Pt reports history of falling, chronic pain for 4 months worsening the past two weeks. R wrist, R hand pain 10/10, poking/aching/intermittent, non-radiating pain. Pt states worsens with movement while performing daily activities. Denies meds prior to arrival. States numbness/tingling to R hand. No wrist deformity noted; tenderness to palpation. Bed locked in lowest position, side rails x 1. pmh: htn, migraine meds: lisinopril, suamtriptan nka sx: ankle surgery, neck sx
[2021-05-09] MEDS ORDERED: PRED20TA5 PO (14:48)
[2021-05-09] MEDS ORDERED: NAPR-54 PO (14:48)
--- NOTE | 2021-05-09 14:53 | NUR ---
Patient discharged with v/s stable. Written and verbal after care instructions given and explained. Patient alert, oriented and verbalized understanding of instructions. Ambulatory with steady gait. All questions addressed prior to discharge. ID band removed. Patient advised to follow up with PMD. Rx of Naproxen, Deltasone given. Patient educated on indication of medication including possible reaction and side effects. Opportunity to ask questions provided and answered.
== END 2021-05-09 14:53 | disposition home or self-care (01) ==
LOC: MED 13:50
DX: G56.01 Carpal tunnel syndrome, right upper limb (principal); J44.9 Chronic obstructive pulmonary disease, unspecified; I10 Essential (primary) hypertension; Z98.890 Other specified postprocedural states; Z79.899 Other long term (current) drug therapy
CPT/HCPCS: 73110; 96372; 99283; J1885

== ENCOUNTER 2021-08-09 15:07 | Emergency (ER) | payer OTHER ==
[~2021-08-09] VITALS: Ht 157.5 cm; Wt 89.4 kg
[2021-08-09 15:21] VITALS: BP 130/82
[2021-08-09] MEDS ORDERED: DIAZ2TAB6 PO (16:47)
[2021-08-09] MEDS ORDERED: METO-486 PO (16:47)
--- NOTE | 2021-08-09 18:28 | NUR ---
NO NURSING IN TERVENTIONS NEEDED
== END 2021-08-09 18:20 | disposition home or self-care (01) ==
LOC: MED 15:07
DX: H81.10 Benign paroxysmal vertigo, unspecified ear (principal); J44.9 Chronic obstructive pulmonary disease, unspecified; I10 Essential (primary) hypertension; Z79.899 Other long term (current) drug therapy
CPT/HCPCS: 99281

== ENCOUNTER 2022-05-12 16:12 | Emergency (ER) | payer OTHER ==
[~2022-05-12] VITALS: Ht 157.5 cm; Wt 93.2 kg
[~2022-05-12 16:12] MED LIST changes: +DIAZ2TAB6 PO; +METO-486 PO
[2022-05-12 16:18] VITALS: BP 159/97
[2022-05-12] MEDS ORDERED: KETOROLAC 30 MG/ML VIAL IM ONE (18:00)
[2022-05-12] MEDS ORDERED: LIDOCAINE 5% 1 EA PATCH TP SCH (18:00)
[2022-05-12] MEDS ORDERED: CYCLOBENZAPRINE 10 MG TAB PO ONE (18:00)
--- NOTE | 2022-05-12 18:13 | NUR ---
AMBULATED TO BED 7
--- NOTE | 2022-05-12 18:47 | NUR ---
57 Y/O FEMALE BIB SELF C/O RIGHT NECK PAIN RADIATING TO R EAR, R SHOULDER R HEAD X 3 DAYS AND LEFT CHEST PAIN 2 DAYS AGO . DENIES ANY CHEST PAIN AT THIS TIME, DENIES ANY SOB. FULL ROM NOTED PMH: HTN,ASTHMA, COPD, HTN, NECK SURGERY 2 YEARS AGO
--- NOTE | 2022-05-12 19:11 | NUR ---
Pt report given to NALINI JUNIOR. Transfer of care at this time.
--- NOTE | 2022-05-12 19:19 | NUR ---
PT RESTING IN BED WITH HOB ELEVATED. PT STATES PAIN LEVEL 9/10 SHARP PRESSURE PAIN. PT HAS BEEN MEDICATED. PT IS A&OX4. BED AT LOWEST POSITION SIDE RAILS UP X1. NKDA
[2022-05-12] MEDS ORDERED: MORPHINE SULFATE 4 MG/ML SYR IM ONE (19:20)
[2022-05-12] MEDS ORDERED: PRED50TA2 PO (20:19)
[2022-05-12] MEDS ORDERED: ACET-5629 PO (20:19)
[2022-05-12 20:37] VITALS: BP 156/97
--- NOTE | 2022-05-12 20:37 | NUR ---
Patient discharged with v/s stable. Written and verbal after care instructions given and explained. Patient alert, oriented and verbalized understanding of instructions. Ambulatory with steady gait. All questions addressed prior to discharge. ID band removed. Patient advised to follow up with PMD. Rx of OXYCODONE HCI PREDNISONE given. Patient educated on indication of medication including possible reaction and side effects. Opportunity to ask questions provided and answered.
--- NOTE | 2022-05-12 20:41 | NUR ---
The patient's care was reviewed and supervised by Aaliyah Lawson RN.
== END 2022-05-12 20:37 | disposition home or self-care (01) ==
LOC: MED 16:12
DX: M54.2 Cervicalgia (principal); R51.9 Headache, unspecified; J45.909 Unspecified asthma, uncomplicated; J44.9 Chronic obstructive pulmonary disease, unspecified; I10 Essential (primary) hypertension; Z79.899 Other long term (current) drug therapy; Z98.890 Other specified postprocedural states
CPT/HCPCS: 96372; 99284; J1885; J2270

== ENCOUNTER 2022-09-23 13:04 | Emergency (ER) | payer OTHER ==
[~2022-09-23] VITALS: Ht 157.5 cm; Wt 89.8 kg
[~2022-09-23 13:04] MED LIST changes: +ACET-5629 PO; +PRED50TA2 PO
[2022-09-23 13:18] VITALS: BP 143/93; PULSE 77; RESP 18; TEMP 97.6
[2022-09-23] MEDS ORDERED: KETOROLAC 30 MG/ML VIAL IM ONE (13:55)
[2022-09-23] MEDS ORDERED: NAPR-1704 PO (14:26)
--- NOTE | 2022-09-23 14:59 | NUR ---
[place] WRAP X 1.
[2022-09-23] MEDS ORDERED: KETOROLAC 30 MG/ML VIAL ONE (15:20)
--- NOTE | 2022-09-23 15:25 | NUR ---
PT MEDICATED PER MD ORDERS. NKA VERBALIZED.
[2022-09-23 15:45] VITALS: BP 139/89; PULSE 75; RESP 20; TEMP 97.6; O2SAT 98
== END 2022-09-23 15:46 | disposition home or self-care (01) ==
LOC: MED 13:04
DX: G89.29 Other chronic pain (principal); M25.522 Pain in left elbow; J44.9 Chronic obstructive pulmonary disease, unspecified; I10 Essential (primary) hypertension; Z79.899 Other long term (current) drug therapy; Z79.1 Long term (current) use of non-steroidal anti-inflammatories (NSAID)
CPT/HCPCS: 73080; 96372; 99283; J1885

== ENCOUNTER 2023-12-10 14:13 | Emergency (ER) | payer MEDICAID, OTHER ==
[~2023-12-10] VITALS: Ht 157.5 cm; Wt 88.0 kg
[~2023-12-10 14:13] MED LIST changes: +NAPR-1704 PO; +NAPR-337 PO; -NAPR-54 PO
[2023-12-10 14:31] VITALS: BP 135/90; PULSE 97; RESP 18; TEMP 98.4; O2SAT 97
[2023-12-10] MEDS ORDERED: NAPR-337 PO (16:13)
[2023-12-10] MEDS ORDERED: CEPH-588 PO (16:13)
[2023-12-10] MEDS ORDERED: SULF-58 PO (16:13)
[2023-12-10] MEDS: BACITRACIN OINT 500 UNITS/GM PKT TP ONE (16:27)
[2023-12-10] MEDS: KETOROLAC 30 MG/ML VIAL IM ONE (16:27)
[2023-12-10 16:38] VITALS: BP 135/90; PULSE 97; RESP 18; TEMP 98.4; O2SAT 97
== END 2023-12-10 16:38 | disposition home or self-care (01) ==
LOC: MED 14:13
DX: S60.022A Contusion of left index finger without damage to nail, initial encounter (principal); L03.012 Cellulitis of left finger; J44.9 Chronic obstructive pulmonary disease, unspecified; I10 Essential (primary) hypertension; Z90.49 Acquired absence of other specified parts of digestive tract; Z98.890 Other specified postprocedural states; Z79.899 Other long term (current) drug therapy; X58.XXXA Exposure to other specified factors, initial encounter; Y92.89 Other specified places as the place of occurrence of the external cause; Y93.89 Activity, other specified; Y99.8 Other external cause status
CPT/HCPCS: 96372; 99283; J1885